=== PATIENT | male | born 1970 | race Caucasian/White ===

== ENCOUNTER 2017-12-31 02:23 | Emergency (ER) | payer OTHER ==
--- NOTE | 2017-12-31 05:15 | EDM.PDOC ---
ED HPI GENERAL MEDICAL PROBLEM - General Chief Complaint: ENT Problem Stated Complaint: HEARING AID STUCK Time Seen by Provider: 12/31/17 04:50 Source of Information: Reports: Patient History Limitations: Reports: No Limitations - History of Present Illness INITIAL COMMENTS - FREE TEXT/NARRATIVE: The patient states that he is using an inexpensive spare left sided hearing aid while his good hearing aid is being repaired. He states that the ear piece broke off in his left ear canal when he scratched his ear around 00:30 this morning, and he is unable to retrieve it. He denies having any pain. States that a similar episode occurred once previously. The patient's PCP is at the [facility] in [place]. Left Ear Pain Score (Numeric/FACES): 5 - Related Data Allergies Allergy/AdvReac Type Severity Reaction Status Date / Time iodine Allergy Rash Verified 12/31/17 02:32 Home Meds: Home Meds Losartan/Hydrochlorothiazide [Losartan-HCTZ 100-25 MG] 1 tab PO DAILY 12/31/17 [ History] Past Medical History HEENT History: Reports: Hard of Hearing (uses a hearing aid) Cardiovascular History: Reports: Hypertension Gastrointestinal History: Reports: Diverticulosis Psychiatric History: Reports: PTSD Endocrine/Metabolic History: Reports: Obesity/BMI 30+ - Infectious Disease History Infectious Disease History: Reports: Chicken Pox - Past Surgical History HEENT Surgical History: Reports: Tonsillectomy Musculoskeletal Surgical History: Reports: 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 ED EXAM, ENT - Physical Exam Exam: See Below Exam Limited By: No Limitations General Appearance: Alert, WD/WN, No Apparent Distress Eye Exam: Bilateral Eye: EOMI, Normal Inspection Ears: Normal External Exam, Canal Foreign Body (easily visible white plastic ring) Nose: Normal Inspection Mouth/Throat: Normal Inspection Head: Atraumatic, Normocephalic ED ENT PROCEDURES - Foreign Body Removal Consent Obtained: Patient Performing Doctor:: Renato Franklin Foreign [facility] Other Location Comment:: Left external auditory canal Anesthesia Type: None Complications: No Course - Vital Signs Last Recorded V/S: Last Vital Signs Temp 36.4 C 12/31/17 02:28 Pulse 99 12/31/17 02:28 Resp 18 12/31/17 02:28 BP 155/81 H 12/31/17 02:28 Pulse Ox 98 12/31/17 02:28 - Re-Assessments/Exams Free Text/Narrative Re-Assessment/Exam: 12/31/17 05:10 The earpiece to his left hearing aid was successfully extracted using a pair of forceps. The patient tolerated the procedure well, and the earpiece appears to be undamaged. Departure - Departure Time of Disposition: 05:11 Disposition: Home, Self-Care 01 Condition: Good Clinical Impression: Foreign body in left ear - Discharge Information *PRESCRIPTION DRUG MONITORING PROGRAM REVIEWED*: Not Applicable *COPY OF PRESCRIPTION DRUG MONITORING REPORT IN PATIENT JOHN: Not Applicable Referrals: PCP,Not In Area [Primary Care Provider] - Additional Instructions: You were seen in the emergency room for removal of a broken-off piece of your hearing aid in your left ear canal. The ear piece was removed from your ear canal in the ER. If any other problems, please do not hesitate to return to the ER.
== END 2017-12-31 05:16 | disposition home or self-care (01) ==
LOC: JD.ED 02:23
DX: T16.2XXA Foreign body in left ear, initial encounter (principal); E66.9 Obesity, unspecified; Z88.8 Allergy status to other drugs, medicaments and biological substances; Z87.891 Personal history of nicotine dependence; X58.XXXA Exposure to other specified factors, initial encounter
CPT/HCPCS: 69200; 99283-25